=== PATIENT | male | born 1990 | race Caucasian/White ===

== ENCOUNTER 2024-02-28 21:05 | Emergency (ER) | payer MEDICAID, SELFPAY ==
[2024-02-28] VITALS (7 sets, daily range): BP systolic 128–139; BP diastolic 66–84; PULSE 62–76; RESP 10–21; TEMP 36.6; O2SAT 97–100
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
--- NOTE | 2024-02-28 21:00 | DI.RAD_ITS ---
Exam(s) XR FOREARM RT EXAM: XR FOREARM RT CLINICAL HISTORY: Right proximal forearm pain. TECHNIQUE: 2D digital imaging was performed of the left forearm. Two views were obtained. AP and l ateral views were obtained. COMPARISON: No exams were available for comparison FINDINGS: BONES: No acute fracture is present. No bony destructive lesion is seen. Visualized portion of elbow and wrist joints are unremarkable. SOFT TISSUE: Normal. No radiopaque foreign body. IMPRESSION: No acute fracture or dislocation. DATA REPOSITORY: RADIATION DOSE DELIVERED:
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
[2024-02-28] MEDS: Lidocaine/Epinephri/Tetracaine Topical Gel 3 ML (21:24)
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
[2024-02-28] MEDS: Lidocaine/Epinephri/Tetracaine Topical Gel 3 ML TP (21:56)
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
== END 2024-02-28 23:23 | disposition home or self-care (01) ==
PROVIDERS: Emergency Provider Emergency Medicine
DX: T07.XXXA Unspecified multiple injuries, initial encounter (principal); S01.81XA Laceration without foreign body of other part of head, initial encounter; S61.412A Laceration without foreign body of left hand, initial encounter; V03.19XA Pedestrian with other conveyance injured in collision with car, pick-up truck or van in traffic accident, initial encounter; Y93.55 Activity, bike riding; S80.212A Abrasion, left knee, initial encounter; S80.211A Abrasion, right knee, initial encounter
CPT/HCPCS: 12001; 12013; 90471; 90715; 99284; 70450; 71046; 73090; 73130; 73564